=== PATIENT | female | born 1945 | race Caucasian/White ===

== ENCOUNTER 2017-03-29 18:57 | Emergency (ER) | payer SELFPAY ==
[~2017-03-29] VITALS: Ht 152.4 cm; Wt 62.7 kg
[2017-03-29 19:04] VITALS: Ht 152.4 cm; Wt 62.7 kg
[2017-03-29 22:52] VITALS: BP 128/72; PULSE 75; RESP 20; TEMP 98.2
== END 2017-03-30 02:14 | disposition left against medical advice (07) ==
LOC: E/R 18:57
DX: Z53.21 Procedure and treatment not carried out due to patient leaving prior to being seen by health care provider (principal)

== ENCOUNTER 2017-04-15 12:58 | Inpatient (IN) | END 2017-05-05 19:35 | disposition home or self-care (01) | DRG 442 ==

== ENCOUNTER 2017-05-10 23:58 | Inpatient (IN) | END 2017-05-15 15:00 | disposition home or self-care (01) | DRG 442 ==

== ENCOUNTER 2017-07-14 11:51 | Inpatient (IN) | END 2017-07-23 15:05 | disposition home or self-care (01) | DRG 644 ==

== ENCOUNTER 2018-01-21 02:04 | Emergency (ER) | END 2018-01-21 04:47 | disposition home or self-care (01) ==

== ENCOUNTER 2018-03-06 19:08 | Emergency (ER) | END 2018-03-06 21:34 | disposition home or self-care (01) ==